=== PATIENT | male | born 1990 | race Two or more races ===

== ENCOUNTER 2018-02-14 15:36 | Emergency (ER) | payer SELFPAY ==
[2018-02-14 15:45] VITALS: BP 132/76; BMI 20.9
--- NOTE | 2018-02-14 16:19 | DR.GENAD ---
HPI - PCP Primary Care Physician: BEATRIZ - HPI Comment HPI Comment: PAIN STATED 5 DAYS AGO. WORSE TODAY. NO FEVER OR DYSURIA. NO V/D. SLIGHT NAUSEA PRESENT. - Complaint/Symptoms Chief Complaint Doctors Comments: EPIGASTRIC PAIN TIMES 5 DAYS. Chief Complaint:: Pt states for the past 5 days he has had constant epigastric pain going through into his back described as sharp stabbing rated 8. Pt also has noticed dark robertson on either side of abdomen that started at the same time - Nurses notes reviewed Nurses Notes Review: Yes - Source History Provided: Patient - Mode of Arrival Mode of Arrival: Ambulatory - Timing Onset of Chief Complaint: 02/09/18 Came on: Suddenly - Duration Duration: Constant Duration: Days - Severity Severity: Moderate PMH - PMH Past Medical History: No Past Surgical History: No - Family History History of Family Medical Conditions: No - Social History Does patient currently use any type of tobacco product: No Have you used tobacco products in the last 12 months: No Type of Tobacco Use: None Does any household member use tobacco: Yes Alcohol Use: Occasionally Do you use any recreational Drugs:: No Lives With: Friend Lives Where: Home - infectious screening In the last 2 months have you had wt loss of >10#?: NO Have you had fever, night sweats or hemotysis?: No Have you traveled outside the country in the last 6 months?: Yes Details about traveling: [facility] 2 weeks ago Isolation: Standard ROS - Review of Systems Constitutional: No Symptoms Reported Eyes: No Symptoms Reported ENTM: No Symptoms Reported Respiratoy: No Symptoms Reported Cardiovascular: No Symptoms Reported Gastrointestinal/Abdominal: Abdominal Pain, Nausea Genitourinary: No Symptoms Reported Neurological: No Symptoms Reported Musculoskeletal: No Symptoms Reported Integumentary: No Symptoms Reported Hematologic/Lymphatic: No Symptoms Reported Endocrine: No Symptoms Reported All Other Systems: Reviewed and Negative PE - Vital Signs Vitals: Temperature 97.8 F Pulse Rate 67 Respiratory Rate 20 Blood Pressure 132/76 O2 Sat by Pulse Oximetry 100 - General Limitations: No Limitations General Appearance: Alert - Head Head Exam: Normal Inspection - Eyes Eye exam: Normal Appearance - ENT ENT Exam: Normal External Ear Exam External Ear Exam: Normal External Inspection TM/Canal Exam: Bilateral Normal Nose Exam: Normal Nose Exam Mouth Exam: Normal Inspection Throat Exam: Normal Inspection - Neck Neck Exam: Trachea Midline - Respiratory Respiratory Exam: Normal Lung Sounds Bilat Respiratory Exam: Bilateral Clear to Auscultation - Cardiovascular Cardiovascular Exam: Regular Rate, Normal Rhythm, Normal Heart Sounds - Abdominal Exam Abdominal Exam: Normal Bowel Sounds, Soft, Tenderness Abdominal Tenderness: Epigastrium, Moderate - Extremities Extremities Exam: Normal Inspection - Back Back Exam: Normal Inspection - Neurologic Neurological Exam: Alert, Oriented X3 - Psychiatric Psychiatric Exam: Normal Affect, Normal Mood - Skin Skin Exam: Normal Color MDM - Differential Diagnosis Differential Diagnosis: EPIGASTRIC PAIN, PUD, CHOLECYSTITIS Course - Treatment Treatment: SEE ORDERS. - Education/Counseling Education/Counseling: Patient, Education Educated On: Diagnosis, Needs for Follow Up ROR - Labs Reviewed Laboratory Results Reviewed?: Yes Result Diagrams: 02/14/18 16:39 02/14/18 16:39 Laboratory: WBC 4.4 X10^3/uL (3.6-10.0) 02/14/18 16:39 RBC 5.34 X10^6/uL (4.7-6.0) 02/14/18 16:39 Hgb 15.4 g/dL (13.5-18.0) 02/14/18 16:39 Hct 44.6 % (42.0-54.0) 02/14/18 16:39 MCV 83.6 fL (80.0-100.0) 02/14/18 16:39 MCH 28.8 pg (27.0-34.0) 02/14/18 16:39 MCHC 34.5 g/dL (33.0-35.0) 02/14/18 16:39 RDW 12.5 % (11.6-16.5) 02/14/18 16:39 Plt Count 189 X10^3/uL (150.0-450.0) 02/14/18 16:39 MPV 10.1 fL (7.4-11.0) 02/14/18 16:39 Neut % (Auto) 55.3 % (42.0-75.0) 02/14/18 16:39 Lymph % (Auto) 35.8 % (21.0-51.0) 02/14/18 16:39 [place] % (Auto) 5.3 % (0.0-13.0) 02/14/18 16:39 Eos % (Auto) 3.1 % (0.9-2.9) H 02/14/18 16:39 Baso % (Auto) 0.5 % (0.2-1.0) 02/14/18 16:39 Neut # (Auto) 2.4 x10^3/uL (2.2-4.8) 02/14/18 16:39 Lymph # (Auto) 1.6 X10^3/uL (1.3-2.9) 02/14/18 16:39 [place] # (Auto) 0.2 x10^3/uL (0.3-0.8) L 02/14/18 16:39 Eos # (Auto) 0.1 x10^3/uL (0.0-0.2) 02/14/18 16:39 Baso # (Auto) 0.0 X10^3/uL (0.0-0.1) 02/14/18 16:39 Absolute Nucleated RBC 0.0 /100WBC 02/14/18 16:39 Sodium 138 mmol/L (136-145) 02/14/18 16:39 Corrected Sodium TNP 02/14/18 16:39 Potassium 4.0 mmol/L (3.5-5.1) 02/14/18 16:39 Chloride 103 mmol/L (98-107) 02/14/18 16:39 Carbon Dioxide 28.3 mmol/L (21-32) 02/14/18 16:39 BUN 10 mg/dL (7-18) 02/14/18 16:39 Creatinine 0.89 mg/dL (0.70-1.30) 02/14/18 16:39 Est GFR (MDRD) Af Amer > 60 (>60) 02/14/18 16:39 Est GFR (MDRD) Non-Af > 60 (>60) 02/14/18 16:39 Glucose 106 mg/dL (65-99) H 02/14/18 16:39 Calcium 8.2 mg/dL (8.5-10.1) L 02/14/18 16:39 Corrected Calcium TNP 02/14/18 16:39 Total Bilirubin 0.80 mg/dL (0.2-1.0) 02/14/18 16:39 AST 23 Units/L (15-37) 02/14/18 16:39 ALT 46 Units/L (12-78) 02/14/18 16:39 Alkaline Phosphatase 132 Units/L (46-116) H 02/14/18 16:39 Total Protein 7.7 g/dL (6.4-8.2) 02/14/18 16:39 Albumin 4.3 g/dL (3.4-5.0) 02/14/18 16:39 Globulin 3.4 g/dL (2.5-4.5) 02/14/18 16:39 Albumin/Globulin Ratio 1.3 Ratio (1.1-2.1) 02/14/18 16:39 Amylase 58 Units/L (25-115) 02/14/18 16:39 Lipase 137 Units/L (73-393) 02/14/18 16:39 Specimen Type Clean catch urine 02/14/18 16:17 Urine Color Yellow (YELLOW) 02/14/18 16:17 Urine Appearance Clear (CLEAR) 02/14/18 16:17 Urine pH 6.5 (5.0 - 8.0) 02/14/18 16:17 Ur Specific [place] 1.015 (1.000-1.030) 02/14/18 16:17 Urine Protein Negative (NEGATIVE) 02/14/18 16:17 Urine Glucose (UA) Negative (NEGATIVE) 02/14/18 16:17 Urine Ketones Negative (NEGATIVE) 02/14/18 16:17 Urine Occult Blood Negative (NEGATIVE) 02/14/18 16:17 Urine Nitrite Negative (NEGATIVE) 02/14/18 16:17 Urine Bilirubin Negative (NEGATIVE) 02/14/18 16:17 Urine Urobilinogen Normal (NORMAL) 02/14/18 16:17 Ur Leukocyte Esterase Negative (NEGATIVE) 02/14/18 16:17 H. pylori IgG Antibody Positive (NEGATIVE) A 02/14/18 16:39 - XRAY XRAY Interpreted by: Radiologist XRAY Findings: REPORT DISCUSS WITH PATIENT. - Diagnosis Discharge Problem: Epigastric abdominal pain, Helicobacter pylori ab+ - Discharge Plan Condition: Stable Prescriptions: Lansoprazole/Amoxiciln/Clarith [PrevPac 14-day pack] 1 dose PO BID #1 pkg - Follow ups/Referrals Follow ups/Referrals: [facility],None [Primary Care Provider] - 3 days YOGI TINAJERO [STAFF PHYSICIAN] - 3 days - Instructions Instructions: Abdominal Pain, Adult, [id number], Helicobacter Pylori Antibodies Test Additional Instructions: RETURN TO ED IF WORSE.
[2018-02-14 16:55] LABS: BASOPHILS % (AUTO) 0.5 % (0.2-1.0); EOSINOPHILS # (AUTO) 0.1 x10^3/uL (0.0-0.2); EOSINOPHILS % (AUTO) 3.1 % (0.9-2.9); HEMATOCRIT 44.6 % (42.0-54.0); HEMOGLOBIN 15.4 g/dL (13.5-18.0); LYMPHOCYTES # (AUTO) 1.6 X10^3/uL (1.3-2.9); LYMPHOCYTES % (AUTO) 35.8 % (21.0-51.0); MEAN CORPUSCULAR HEMOGLOBIN 28.8 pg (27.0-34.0); MEAN CORPUSCULAR HGB CONC 34.5 g/dL (33.0-35.0); MEAN CORPUSCULAR VOLUME 83.6 fL (80.0-100.0); MEAN PLATELET VOLUME 10.1 fL (7.4-11.0); MONOCYTES # (AUTO) 0.2 x10^3/uL (0.3-0.8); MONOCYTES % (AUTO) 5.3 % (0.0-13.0); NEUTROPHILS # (AUTO) 2.4 x10^3/uL (2.2-4.8); NEUTROPHILS % (AUTO) 55.3 % (42.0-75.0); PLATELET COUNT 189 X10^3/uL (150.0-450.0); RED BLOOD COUNT 5.34 X10^6/uL (4.7-6.0); RED CELL DISTRIBUTION WIDTH 12.5 % (11.6-16.5); WHITE BLOOD COUNT 4.4 X10^3/uL (3.6-10.0)
[2018-02-14 17:02] LABS: ALANINE AMINOTRANSFERASE 46 Units/L (12-78); ALBUMIN 4.3 g/dL (3.4-5.0); ALKALINE PHOSPHATASE 132 Units/L (46-116); AMYLASE 58 Units/L (25-115); ASPARTATE AMINO TRANSFERASE 23 Units/L (15-37); BLOOD UREA NITROGEN 10 mg/dL (7-18); CALCIUM 8.2 mg/dL (8.5-10.1); CARBON DIOXIDE 28.3 mmol/L (21-32); CHLORIDE 103 mmol/L (98-107); CREATININE 0.89 mg/dL (0.70-1.30); LIPASE 137 Units/L (73-393); SODIUM 138 mmol/L (136-145); TOTAL PROTEIN 7.7 g/dL (6.4-8.2); eGFR BLACK RACES > 60 (>60); eGFR NON BLACK RACES > 60 (>60)
--- NOTE | 2018-02-14 17:45 | RAD ---
HISTORY: Abdominal pain Study: Acute abdominal series Comparison: None Findings: The trachea is midline. The cardiac silhouette is unremarkable. The lungs are clear without focal i nfiltrate or effusion. A calcified granuloma is noted within the mid to lower left lung. The bony tho rax is unremarkable. Flat plate and upright evaluation of the abdomen demonstrates a normal bowel gas pattern. No patholo gical soft tissue mass or calcification can be observed. The bony structures are grossly intact. IMPRESSION: 1. No acute cardiopulmonary disease. 2. No evidence for acute abdominal pathology identified. Reported By:
[2018-02-14 17:53] LABS: BILIRUBIN,URINE NEGATIVE (NEGATIVE); BLOOD/HEMOGLOBIN,URINE NEGATIVE (NEGATIVE); GLUCOSE, URINE NEGATIVE (NEGATIVE); KETONES,URINE NEGATIVE (NEGATIVE); LEUKOCYTE ESTERASE ,URINE NEGATIVE (NEGATIVE); NITRITES,URINE NEGATIVE (NEGATIVE); PH,URINE 6.5 (5.0 - 8.0); PROTEIN,URINE NEGATIVE (NEGATIVE); UROBILINOGEN,URINE NORMAL (NORMAL)
[2018-02-14 17:54] LABS: APPEARANCE,URINE CLEAR (CLEAR); COLOR,URINE YELLOW (YELLOW)
== END 2018-02-14 18:13 | disposition home or self-care (01) ==
LOC: ER 15:52
DX: R10.13 Epigastric pain (principal); B96.81 Helicobacter pylori [H. pylori] as the cause of diseases classified elsewhere; M79.1 Myalgia; M54.5 Low back pain
CPT/HCPCS: 36415; 74022; 80053; 81003; 82150; 83690; 85025; 86677; 99282; 99283